=== PATIENT | male | born 1990 | race Two or more races ===

== ENCOUNTER 2018-02-08 08:08 | Emergency (ER) | payer SELFPAY ==
[2018-02-08 08:11] VITALS: BP 125/84
--- NOTE | 2018-02-08 08:23 | ER Report ---
History and Physical Time Seen By MD: 08:20 Hx. of Stated Complaint: CUT TO LEFT LOWER LEG WITH KNIFE. HPI/ROS CHIEF COMPLAINT: leg laceration HISTORY OF PRESENT ILLNESS: This is a 27 year old male. He cut his right thigh just above the knee with a knife while cutting open a case of paint cans. 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 Significant bleeding, but controlled now. Unknown tetanus. Normal sensation in leg. He is feeling a little faint from the sight of blood. Allergies: Coded Allergies: No Known Drug Allergies (Unverified , 02/08/18) Home Meds Active Scripts Cephalexin Monohydrate (CEPHALEXIN) 500 Mg Cap, 500 MG PO Q8H, #15 CAP 0 Refills Prov:GUILHERME MONTOYA MD 02/08/18 Reviewed Nurses Notes: Yes Constitutional Vital Sign - Last 24 Hours 02/08/18 08:11 Temp 98.1 Pulse 71 Resp 18 B/P (MAP) 125/84 Pulse Ox 96 O2 Delivery Room Air Intake and Output 02/08/18 02/08/18 02/09/18 15:00 23:00 07:00 Intake Total 1000 ml Balance 1000 ml Physical Exam General: Alert, mild acute distress. Skin: 3.5cm laceration medial distal thigh just above the knee. into subcutaneous tissue. Musculoskeletal: No deficits or bony involvement. Cardiovascular: Normal pulses and capillary refill Neuro: intact in the right leg. Medical Decision Making Data Points Result Diagram: 02/08/18 0932 02/08/18 0932 Laboratory Hematology Test 02/08/18 09:32 Red Blood Count 5.17 M/uL (4.00-5.60) Mean Corpuscular Volume 87.4 fL (80.0-96.0) Mean Corpuscular Hemoglobin 30.2 pg (26.0-33.0) Mean Corpuscular Hemoglobin Concent 34.6 g/dL (32.0-36.0) Red Cell Distribution Width 13.4 % (11.5-14.5) Mean Platelet Volume 7.7 fL (7.2-11.1) Neutrophils (%) (Auto) 46.3 % (39.4-72.5) Lymphocytes (%) (Auto) 40.3 % (17.6-49.6) Monocytes (%) (Auto) 11.6 % (4.1-12.4) Eosinophils (%) (Auto) 1.4 % (0.4-6.7) Basophils (%) (Auto) 0.4 % (0.3-1.4) Nucleated RBC Relative Count (auto) 0.1 /100WBC Neutrophils # (Auto) 3.1 K/uL (2.0-7.4) Lymphocytes # (Auto) 2.7 K/uL (1.3-3.6) Monocytes # (Auto) 0.8 K/uL (0.3-1.0) Eosinophils # (Auto) 0.1 K/uL (0.0-0.5) Basophils # (Auto) 0.0 K/uL (0.0-0.1) Nucleated RBC Absolute Count (auto) 0.01 K/uL Sodium Level 139 mmol/L (137-145) Potassium Level 3.7 mmol/L (3.5-5.0) Chloride Level 101 mmol/L (98-107) Carbon Dioxide Level 26 mmol/L (22-30) Blood Urea Nitrogen 17 mg/dl (9-21) Creatinine 0.90 mg/dl (0.66-1.25) Glomerular Filtration Rate Calc > 60.0 Random Glucose 135 mg/dl (75-110) Calcium Level 8.9 mg/dl (8.4-10.2) Total Bilirubin 0.5 mg/dl (0.2-1.3) Aspartate Amino Transf (AST/SGOT) 27 U/L (0-35) Alanine Aminotransferase (ALT/SGPT) 34 U/L (0-56) Alkaline Phosphatase 101 U/L (0-126) Total Protein 7.3 g/dl (6.3-8.2) Albumin 4.2 g/dl (3.5-5.0) Chemistry Test 02/08/18 09:32 White Blood Count 6.6 k/uL (4.5-11.0) Red Blood Count 5.17 M/uL (4.00-5.60) Hemoglobin 15.6 g/dL (14.0-18.0) Hematocrit 45.2 % (42.0-52.0) Mean Corpuscular Volume 87.4 fL (80.0-96.0) Mean Corpuscular Hemoglobin 30.2 pg (26.0-33.0) Mean Corpuscular Hemoglobin Concent 34.6 g/dL (32.0-36.0) Red Cell Distribution Width 13.4 % (11.5-14.5) Platelet Count 350 K/uL (150-450) Mean Platelet Volume 7.7 fL (7.2-11.1) Neutrophils (%) (Auto) 46.3 % (39.4-72.5) Lymphocytes (%) (Auto) 40.3 % (17.6-49.6) Monocytes (%) (Auto) 11.6 % (4.1-12.4) Eosinophils (%) (Auto) 1.4 % (0.4-6.7) Basophils (%) (Auto) 0.4 % (0.3-1.4) Nucleated RBC Relative Count (auto) 0.1 /100WBC Neutrophils # (Auto) 3.1 K/uL (2.0-7.4) Lymphocytes # (Auto) 2.7 K/uL (1.3-3.6) Monocytes # (Auto) 0.8 K/uL (0.3-1.0) Eosinophils # (Auto) 0.1 K/uL (0.0-0.5) Basophils # (Auto) 0.0 K/uL (0.0-0.1) Nucleated RBC Absolute Count (auto) 0.01 K/uL Glomerular Filtration Rate Calc > 60.0 Calcium Level 8.9 mg/dl (8.4-10.2) Total Bilirubin 0.5 mg/dl (0.2-1.3) Aspartate Amino Transf (AST/SGOT) 27 U/L (0-35) Alanine Aminotransferase (ALT/SGPT) 34 U/L (0-56) Alkaline Phosphatase 101 U/L (0-126) Total Protein 7.3 g/dl (6.3-8.2) Albumin 4.2 g/dl (3.5-5.0) ED Course/Re-evaluation Clinical Indication for ER IV: Hydration, IV Access ED Course Laceration repaired as noted below. Because of feeling nauseated and faint, we placed and IV and gave a liter of normal saline and obtained a CBC and CMP. These were unremarkable. The patient felt better afterward. Pressure dressing placed. Procedure: Laceration Repair Verbal consent from patient after discussing repair options, risks and benefits. Wound cleaned extensively with Hibiclens and saline. Anesthesia: local 1% lidocaine and 0.25% bupivacaine, with epinephrine. Location: medial distal right thigh. Length: 3.5 cm. Character: into subcutaneous. bleeding, but no pulsatile flow. There were no deep structures involved. No tendon injury was identified. Wound repair: 3 interrupted subcutaneous Vicryl 4-0 sutures. Running external 4- 0 Ethilon. The wound repair was Intermediate and performed by myself. Wound care instructions discussed. Sutures need to be removed in 7 days. Tetanus booster given. Cephalexin 500mg three times a day for 5 days. Decision to Disposition Date: Feb 08, 2018 Decision to Disposition Time: 10:20 Depart Departure Latest Vital Signs Vital Signs Date Time Temp Pulse Resp B/P (MAP) Pulse Ox O2 Delivery O2 Flow Rate FiO2 02/08/18 08:11 98.1 71 18 125/84 96 Room Air Impression: Primary Impression: Laceration of thigh, right Condition: Improved Disposition: HOME OR SELF-CARE New Scripts Cephalexin Monohydrate (CEPHALEXIN) 500 Mg Cap 500 MG PO Q8H, #15 CAP 0 Refills Prov: GUILHERME MONTOYA MD 02/08/18 Patient Instructions: Laceration (ED) Additional Instructions: Wound Care: Wash the wound once a day with soap and water. Dry the wound and apply a small amount of antibiotic ointment with a clean dressing. If the dressing becomes wet or dirty, repeat cleaning and dressing as above. No soaking the wound; no swimming. Stitches need to be removed in 5-7 days. Pain Control: Use Tylenol or ibuprofen for pain. Using and ice pack can help reduce swelling. Antibiotic: Cephalexin 500mg 3 times a day for 5 days. Rest today and increase fluid intake today. May resume regular duties tomorrow. Problem Qualifiers Primary Impression: Laceration of thigh, right Encounter type: initial encounter Qualified Codes: S71.111A - Laceration without foreign body, right thigh, initial encounter GUILHERME MONTOYA MD Feb 08, 2018 08:23
[2018-02-08] MEDS ORDERED: ONDANSETRON 4 MG/2 ML VIAL IVP ONE (09:15)
[2018-02-08] MEDS ORDERED: DIPHTH/TETANUS/ACEL. PERTUSSIS IM ONLY ONE (09:15)
[2018-02-08] MEDS ORDERED: NS(*) 0.9% 1000 ML BAG 1,000 ML IV ONE (09:15)
[2018-02-08 09:46] LABS: PLATELET COUNT, AUTOMATED 350 K/uL (150-450)
[2018-02-08] MEDS ORDERED: CEPH500C24 PO (10:21)
== END 2018-02-08 10:34 | disposition home or self-care (01) ==
LOC: ER 08:15
DX: S71.111A Laceration without foreign body, right thigh, initial encounter (principal)
CPT/HCPCS: 12032; 85025; 90471; 90715; 96361; 96374; 99283; J2405; J7030; 82040; 82247; 82310; 82374; 82435; 82565; 82947; 84075; 84132; 84155; 84295; 84450; 84460; 84520